=== PATIENT | female | born 1990 | race Two or more races ===

== ENCOUNTER 2018-08-14 14:49 | Emergency (ER) | payer MEDICAID ==
[~2018-08-14] VITALS: Ht 160 cm; Wt 68.7 kg
[2018-08-14 14:54] VITALS: BP 145/72
== END 2018-08-14 21:34 | disposition left against medical advice (07) ==
LOC: ER 14:49
DX: S41.112D Laceration without foreign body of left upper arm, subsequent encounter (principal); X58.XXXD Exposure to other specified factors, subsequent encounter; Z53.21 Procedure and treatment not carried out due to patient leaving prior to being seen by health care provider